=== PATIENT | male | born 1955 | race Caucasian/White ===

== ENCOUNTER 2018-03-21 14:32 | Emergency (ER) | payer OTHER ==
[~2018-03-21] VITALS: Ht 182.9 cm; Wt 106.1 kg
== END 2018-03-21 20:14 | disposition home or self-care (01) ==
LOC: ER 14:32
DX: S70.371A Other superficial bite of right thigh, initial encounter (principal); L08.9 Local infection of the skin and subcutaneous tissue, unspecified; W57.XXXA Bitten or stung by nonvenomous insect and other nonvenomous arthropods, initial encounter; Y93.89 Activity, other specified; Y92.89 Other specified places as the place of occurrence of the external cause; Y99.8 Other external cause status

== ENCOUNTER 2019-05-26 21:15 | Emergency (ER) | payer OTHER ==
[~2019-05-26] VITALS: Ht 177.8 cm; Wt 104.3 kg
[2019-05-27] MEDS ORDERED: ZITHROMAX500 MG PO (13:13)
[2019-05-27] MEDS ORDERED: TESSALON PERLE100 M1 PO (13:13)
[2019-05-27] MEDS ORDERED: MEDROLPACK PO (13:13)
[2019-05-27] MEDS ORDERED: IPRAT-ALBUT 0.5-3 ML IH (13:13)
[2019-05-27] MEDS ORDERED: XOPENEX0.63 MG/3 IH (13:13)
== END 2019-05-27 13:47 | disposition home or self-care (01) ==
LOC: ER 21:15
DX: J44.1 Chronic obstructive pulmonary disease with (acute) exacerbation (principal); J45.31 Mild persistent asthma with (acute) exacerbation; Z87.891 Personal history of nicotine dependence; E66.8 Other obesity; G47.33 Obstructive sleep apnea (adult) (pediatric); G47.36 Sleep related hypoventilation in conditions classified elsewhere